=== PATIENT | male | born 1965 | race Two or more races ===

== ENCOUNTER 2021-04-04 20:10 | Emergency (ER) | payer MEDICARE, MEDICAID ==
[~2021-04-04] VITALS: Ht 175.3 cm; Wt 108.9 kg
[~2021-04-04 20:10] MED LIST: LISI-708
[2021-04-05 02:05] VITALS: BP 118/67
== END 2021-04-05 02:06 | disposition home or self-care (01) ==
LOC: ER 20:10
DX: S52.502A Unspecified fracture of the lower end of left radius, initial encounter for closed fracture (principal); F41.9 Anxiety disorder, unspecified; F32.9 Major depressive disorder, single episode, unspecified; I10 Essential (primary) hypertension; Z88.0 Allergy status to penicillin; W01.0XXA Fall on same level from slipping, tripping and stumbling without subsequent striking against object, initial encounter; Y93.89 Activity, other specified; Y92.89 Other specified places as the place of occurrence of the external cause; Y99.8 Other external cause status
CPT/HCPCS: 29125; 73090